=== PATIENT | female | born 1965 | race Caucasian/White ===

== ENCOUNTER → 2017-05-22 | Outpatient (CLI) | payer BC ==
[~2017-05-22] MED LIST: LIDOCAINE 1%, 20ML ONE
== END ==
LOC: RAD 09:05
PROVIDERS: ATTEND Surgery
DX: E04.1 Nontoxic single thyroid nodule (principal)
CPT/HCPCS: 76942; 88173

== ENCOUNTER → 2017-06-09 | Outpatient (CLI) | payer BC ==
[~2017-06-09] MED LIST changes: +ARMOUR THYROID PO; -LIDOCAINE 1%, 20ML ONE; +MULT-516 PO; +[UNRECOGNIZED DRUG - OTHER] PO
== END ==
LOC: STAR 10:20
PROVIDERS: ATTEND Surgery
DX: Z02.9 Encounter for administrative examinations, unspecified (principal)